=== PATIENT | male | born 1995 | race Caucasian/White ===

== ENCOUNTER 2016-05-17 19:44 | Emergency (ER) | payer OTHER ==
[2016-05-17 20:07] LABS: BASOPHIL# 0.1 X 10^3uL (0.0-0.1); EOSINOPHILS# 0.2 X 10^3uL (0.0-0.4); MEAN CELL VOLUME 90.1 fL (80.0-100.0); MONOCYTES 5.4 % (2.0-10.0); MONOCYTES# 0.5 X 10^3uL (0.2-1.0); NEUTROPHILS# 5.5 X 10^3uL (2.6-6.7)
[2016-05-17 20:09] LABS: BASOPHILS 0.8 % (0.0-2.0); EOSINOPHILS 2.3 % (0.0-6.0); HEMATOCRIT 49.1 % (42.0-54.0); HEMOGLOBIN 16.7 g/dL (14.0-18.0); LYMPHOCYTES 26.5 % (20.0-40.0); LYMPHOCYTES# 2.3 X 10^3uL (0.8-3.8); MEAN CORPUS. HGB CONCENTRATION 34.1 g/dL (32.0-36.0); MEAN CORPUSCULAR HEMOGLOBIN 30.7 pg (29.0-35.0); RED BLOOD COUNT 5.45 X 10^6uL (4.20-6.10); RED CELL DISTRIBUTION WIDTH 12.2 % (11.5-14.5); WHITE BLOOD COUNT 8.6 X 10^3uL (3.9-10.7)
--- NOTE | 2016-05-17 20:33 | ER NURSING DOCUMENTATION ---
Nurse's Notes [facility] Name:Abdirashid Gary Age:20 yrs Sex:Male :1995 Arrival Date:05/17/2016 Time:19:44 Bed1 Private MD:Physician, No Diagnosis:Hematemesis Presentation: 05/17 19:46 Presenting complaint: Patient states: Pt vomited blood once on Tuesday and once today. rh Pt states he vomit was red. Transition of care: Other Kimberlyn Crest. 19:46 Method Of Arrival: Private Vehicle rh 19:46 Acuity: NANCIE 4 rh Triage Assessment: 19:48 General: Appears in no apparent distress, Behavior is cooperative. Pain: Denies pain. rh EENT: Oral mucosa is dry. Neuro: Level of Consciousness is awake, alert, obeys commands. Cardiovascular: Capillary refill < 3 seconds. Respiratory: Airway is patent. GI: Reports vomiting, Blood in vomit once today. : No deficits noted. Derm: Skin is intact, is healthy with good turgor, Skin is pink, warm & dry. Historical: - Allergies: Tramadol HCl; - Home Meds: 1. Verapamil Oral 2. gabapentin oral 3. Hydrocodone-Acetaminophen Oral 4. Cyclobenzaprine Oral - PMHx: CHRONIC PAIN; HYPERTENSION; - PSHx: BACK SURGERY; - Tetanus: < 10 years. - Ebola Screening: : Patient negative for fever greater than or equal to 101.5 degrees Fahrenheit, and additional compatible Ebola Virus Disease symptoms. - Immunization history: Flu Vaccine < 1 year. - Social history: Smoking status: Patient states was never smoker of tobacco. Screenin:49 Infectious Disease Risk None. Abuse screen: Denies threats or abuse. Denies injuries rh from another. Nutritional screening: No deficits noted. Assessment: 19:49 See Triage Assessment done by same RN. rh Vital Signs: 19:49 BP 120 / 75; Pulse 102; Resp 18; Temp 97.5(O); Pulse Ox 93% on R/A; Weight 58.97 kg; rh Height 5 ft. 11 in. (180.34 cm); Pain 1/10; 20:31 Pulse 90; Resp 15; Pulse Ox 95% on R/A; rh 19:49 Body Mass Index 18.13 (58.97 kg, 180.34 cm) rh ED Course: 19:45 Patient arrived in ED. em2 19:45 Physician, No is Private Physician. em2 19:46 Cherie Ward is Primary Nurse. 19:46 Triage completed. 19:49 Valuables Remains with patient Patient has correct armband on for positive rh identification. Bed in low position. Call light in reach. Pillow given. Family accompanied patient. 19:51 Notified ED Physician of patient's arrival and chief complaint. Dr. Qureshi notified. 19:57 Labs drawn. (by ED staff). Sent per order to lab. 20:09 Toño Qureshi MD is Attending Physician. zack 20:22 Assist Provider Rectal Exam. 20:26 Jacoby Sharma MD is Referral Physician. zack Administered Medications: No medications were administered Outcome: 20:26 Discharge ordered by . 20:31 Discharged to home ambulatory, with significant other. 20:31 Condition: stable 20:31 Discharge Assessment: Patient awake, alert and oriented x 3. No cognitive and/or functional deficits noted. Patient verbalized understanding of disposition instructions. 20:31 Discharge instructions given to patient, Instructed on discharge instructions, follow up and referral plans. Demonstrated understanding of instructions, medications, Prescriptions given X 1. 20:32 Patient left the ED. 05/18 10:07 Discharge F/U Call: Unable to reach: no answer lp Signatures: Cristina Chow RN RN lp Toño Qureshi MD MD jm Meimaged-reg, Jayla-reg em2 Cherie Ward
--- NOTE | 2016-05-17 20:33 | ER PHYSICIAN DOCUMENTATION ---
Physician Documentation [facility] Name:Abdirashid Gary Age:20 yrs Sex:Male :1995 Arrival Date:05/17/2016 Time:19:44 Bed1 Private MD:Physician, No ED Toño [place] Disposition: 05/17/16 20:26 Discharged to Home/Self Care. Impression: Hematemesis. - Condition is Good. - Discharge Instructions: HEMATEMESIS Stable - GI BLEED, Upper (Stable). - Prescriptions for omeprazole 20 mg Oral capsule,delayed release(DR/EC) - take 1 capsule by ORAL route once daily; 30 capsule. - Medical Reconciliation form form. - Follow up: Jacoby Sharma MD; When: - Try to schedule EGD. ; Reason: Continuance of care. - Problem is new. - Symptoms have improved. HPI: 05/17 20:00 This 20 yrs old Male presents to ER via Private Vehicle with complaints of jm Vomiting - BLOOD IN VOMIT. 20:00 The patient presents to the emergency department with vomiting, 1 times today, and one jm time, 3 days ago. , described as blood streaked. Onset: The symptom(s)/episode began/occurred 3 day(s) ago. Possible causes: unknown. Associated signs and symptoms: Pertinent negatives: abdominal pain, nausea, vomiting. Severity of symptoms: in the emergency department the symptoms have improved. Pt here to get checked out b/c for the 2nd time in 3 days he saw a bit of vomit in the toilet. Pt denies nausea now, unusual foods, or ETOH. Pt states his stools have been a bit darker as well. . Historical: - Allergies: Tramadol HCl; - Home Meds: 1. Verapamil Oral 2. gabapentin oral 3. Hydrocodone-Acetaminophen Oral 4. Cyclobenzaprine Oral - PMHx: CHRONIC PAIN; HYPERTENSION; - PSHx: BACK SURGERY; - Tetanus: < 10 years. - Ebola Screening: : Patient negative for fever greater than or equal to 101.5 degrees Fahrenheit, and additional compatible Ebola Virus Disease symptoms. - Immunization history: Flu Vaccine < 1 year. - Social history: Smoking status: Patient states was never smoker of tobacco. ROS: 05/18 10:01 Constitutional: Negative for fatigue, fever, malaise. jm Abdomen/GI: Positive for hematemesis, black/tarry stool, Negative for rectal pain, rectal bleeding. 10: : Negative for hematuria. 10: Neuro: Negative for dizziness, near syncope. Exam: 10: Constitutional: The patient appears alert, awake, comfortable. 10: Cardiovascular: Rate: normal, Rhythm: regular. 10: Respiratory: Respirations: normal, Breath sounds: are normal. 10: Abdomen/GI: Bowel sounds: normal, Palpation: abdomen is soft and non-tender, Rectal exam: Stool: brown, guaiac negative. 10: Skin: Appearance: Color: pink. 10: Neuro: Mentation: is normal, Gait: is steady. Vital Signs: 05/17 19:49 BP 120 / 75; Pulse 102; Resp 18; Temp 97.5(O); Pulse Ox 93% on R/A; Weight 58.97 kg; rh Height 5 ft. 11 in. (180.34 cm); Pain /; 20:31 Pulse 90; Resp 15; Pulse Ox 95% on R/A; rh 19:49 Body Mass Index 18.13 (58.97 kg, 180.34 cm) MDM: 20:00 Differential diagnosis: viral gastroenteritis, MW tear, gastritis. Data reviewed: vital jm signs, nurses notes, lab test result(s), and as a result, I will discharge patient. Counseling: I had a detailed discussion with the patient and/or guardian regarding: the historical points, exam findings, and any diagnostic results supporting the discharge/admit diagnosis, lab results, the need for outpatient follow up, with the patient's primary care provider, a systems support specialist. ED course: Pt w normal CBC and no rectal blood. VSS w/o pain or nausea. I feel pt can f/u as outpt. Will given RX for omeprazole in the mean time and f/u w GI. . 20:09 Patient medically screened. 05/17 20:14 Order name: CBC AUTO DIF, MDIF/RMOR IF IND; Complete Time: 20:14 EDMS Dispensed Medications: No medications were administered Signatures: Toño Qureshi MD MD jm Hofsess, Rachel
== END 2016-05-17 20:32 | disposition home or self-care (01) ==
LOC: ER 19:44
DX: K92.0 Hematemesis (principal); G89.29 Other chronic pain; I10 Essential (primary) hypertension; Z79.899 Other long term (current) drug therapy
CPT/HCPCS: 85025; 99283

== ENCOUNTER 2016-05-19 20:19 | Emergency (ER) | payer OTHER ==
[2016-05-19] MEDS ORDERED: ONDANSETRON ODT 4 MG TAB.RAPDIS ONE (20:46)
[2016-05-19] MEDS ORDERED: IBUPROFEN 600 MG TABLET PO ONE (21:03)
[2016-05-19] MEDS ORDERED: ACETAMINOPHEN 325 MG TABLET PO ONE (21:03)
--- NOTE | 2016-05-19 21:29 | CT REPORT ---
HISTORY: Rock fell and hit him in the head, nausea and lightheadedness COMPARISON: None. TECHNIQUE: Axial non-contrast images obtained from skull vertex through foramen magnum. Dose reduction technique was utilized. FINDINGS: There is no atrophy. There is no hemorrhage. There is no hydrocephalus. No mass lesion is identifi ed. Jackson white differentiation adequate, there is no infarction. No midline shift is identified. Th ere is no subdural or epidural collection, or midline shift. No mass effect. The skull is intact. Mild ethmoid sinus disease is noted. IMPRESSION: No acute findings noted within the brain. Mild ethmoid sinus disease. Final Electronic Signature: This report was electronically signed by Gabriel Lara MD on 05/19/2016 9 :26 PM. rai /
--- NOTE | 2016-05-19 22:10 | ER PHYSICIAN DOCUMENTATION ---
Physician Documentation [facility] Name:Abdirashid Gary Age:20 yrs Sex:Male :1995 Arrival Date:05/19/2016 Time:20:19 Bed1 Private MD:Physician, No ED Igor Johnson Disposition: 05/19/16 21:48 Discharged to Home/Self Care. Impression: Concussion without LOC. - Condition is Good. - Discharge Instructions: CONCUSSION, No Wake Up. - Medical Reconciliation form form. - Follow up: Private Physician; When: 7 - 10 days; Reason: Recheck today's complaints, Continuance of care. - Problem is new. - Symptoms have improved. - Notes: Drink plenty of fluids each. Avoid all activities that could result in a head injury for 2 weeks. Take Ibuprofen 600mg by mouth every 6 hours with food for headache for 2 days. Post-Concussive Syndrome symptoms were discussed with the patient. HPI: 05/19 20:51 This 20 yrs old Male presents to ER via Private Vehicle with complaints of cd Head Injury-Adult. 20:51 The patient or guardian reports abrasion, injury, pain, tenderness. The complaints cd affect the top of head and forehead. Context of injury: The problem was sustained outdoors, resulted from a direct blow, a couple of large rocks that came loose and [place] the mountain and struck the patient's head.. Onset: The symptom(s)/episode began/occurred acutely, just prior to arrival. Associated signs and symptoms: Loss of consciousness: This patient did not experience any loss of consciousness. Pertinent positives: dazed, headache, nausea, generalized weakness, face and forehead, Patient has right Trapezius tenderness, Pertinent negatives: seizure. Severity of symptoms: At their worst the symptoms were moderate, in the emergency department the symptoms are unchanged. Intracranial bleed risk factors: This patient has no risk factors for intracranial bleed. Historical: - Allergies: Tramadol HCl; - Home Meds: 1. Verapamil Oral 2. gabapentin oral 3. Hydrocodone-Acetaminophen Oral 4. Cyclobenzaprine Oral - PMHx: CHRONIC PAIN; HYPERTENSION; Hematemesis (May 17, 2016); - PSHx: BACK SURGERY; - Tetanus: < 10 years. - Ebola Screening: : Patient negative for fever greater than or equal to 101.5 degrees Fahrenheit, and additional compatible Ebola Virus Disease symptoms. - Immunization history: Flu Vaccine None. - Social history: Smoking status: Patient states was never smoker of tobacco. ROS: 20:55 Constitutional: Positive for poor PO intake. cd 20:55 Eyes: Negative for blurry vision, visual disturbance, vision loss. 20:55 ENT: Negative for acute changes. 20:55 Neck: Positive for pain at rest, over right Trapezious, Negative for bony tenderness. 20:55 Neuro: Positive for dizziness, headache, Negative for altered mental status, loss of consciousness, numbness, seizure activity, speech changes, tingling. 20:55 All other systems are negative. Exam: 20:58 Constitutional: The patient appears alert, awake, non-diaphoretic, non-toxic, well cd developed, well nourished, anxious, in obvious distress, mildly distressed. 20:58 Head/face: Noted is abrasion(s), that are mild, contusion, that is deep, of the top of head and forehead, Basilar skull fracture findings: the patient does not have obvious signs of a basilar skull fracture, no Rao signs, no hemotympanum, no nasal drainage, no racoon eyes. 20:58 Eyes: Pupils: equal, round, and reactive to light and accomodation, Extraocular movements: intact throughout. 20:58 ENT: TM's: hemotympanum, is not appreciated, bilaterally. 20:58 Neck: External neck: tenderness, that is moderate, of the right trapezius, C-spine: vertebral tenderness, is not appreciated. 20:58 Neuro: Orientation: is normal, to person, place & time. Mentation: lucid, able to follow commands, Memory: is normal, Cranial nerves: CN II- XII are normal as tested, Motor: is normal, Sensation: is normal, Gait: is steady. Vital Signs: 20:30 BP 134 / 84; Pulse 78; Resp 16; Temp 98.7(O); Pulse Ox 96% on R/A; Weight 58.97 kg; rh Height 5 ft. 11 in. (180.34 cm); Pain 5/10; 21:27 BP 130 / 78; Pulse 70; Resp 15; Pulse Ox 98% on R/A; Pain 2/10; rh 20:30 Body Mass Index 18.13 (58.97 kg, 180.34 cm) rh Maple Coma Score: 20:25 Eye Response: spontaneous(4). Verbal Response: oriented(5). Motor Response: obeys rh commands(6). Total: 15. 20:51 Eye Response: spontaneous(4). Verbal Response: oriented(5). Motor Response: obeys cd commands(6). Total: 15. 20:58 Eye Response: spontaneous(4). Verbal Response: oriented(5). Motor Response: obeys cd commands(6). Total: 15. 21:00 Eye Response: spontaneous(4). Verbal Response: oriented(5). Motor Response: obeys cd commands(6). Total: 15. Trauma Score (Adult): 20:31 Eye Response: spontaneous(1); Verbal Response: oriented(1); Motor Response: obeys rh commands(2); Systolic BP: > 89 mm Hg(4); Respiratory Rate: 10 to 29 per min(4); Galindo Score: 15; Trauma Score: 12 21:27 Eye Response: spontaneous(1); Verbal Response: oriented(1); Motor Response: obeys rh commands(2); Systolic BP: > 89 mm Hg(4); Respiratory Rate: 10 to 29 per min(4); Maple Score: 15; Trauma Score: 12 MDM: 20:30 Data interpreted: Pulse oximetry: on room air is 96 %. Interpretation: normal. cd 20:45 Differential diagnosis: Contusion of Hematoma on Intracranial bleed- Concussion without cd LOC. 20:50 Patient medically screened. cd 21:00 Neurological re-evaluation: normal neurological exam including cranial nerves, cd orientation, mentation, motor and sensory exam, cerebellar testing, GCS normal, and normal gait. Data reviewed: vital signs, nurses notes, old medical records, and as a result, I will continue to observe the patient, order radiologic studie(s), CT scan. 21:30 Medication response: The patient's symptoms have improved. cd 21:45 Neurological re-evaluation: normal neurological exam including cranial nerves, cd orientation, mentation, motor and sensory exam, cerebellar testing, GCS normal, and normal gait. 21:46 Counseling: I had a detailed discussion with the patient and/or guardian regarding: the cd historical points, exam findings, and any diagnostic results supporting the discharge/admit diagnosis, radiology results, the need for outpatient follow up, for a recheck, with the patient's primary care provider. 21:47 Response to treatment: the patient's symptoms have markedly improved after treatment, rupinder and as a result, I will discharge patient. 05/19 21:31 Order name: CAT SCAN; HEAD W/O CON [id number]; Complete Time: 11:40 EDMS 05/20 11:39 Interpretation: Normal: See report. cd 05/19 20:48 Order name: Wound Care; Complete Time: 20:48 rh Dispensed Medications: 20:38 Drug: Zofran 4 mg; Route: PO; rh 20:48 Follow up: Response: Nausea is decreased rh 20:53 Drug: Acetaminophen 975 mg; Route: PO; rh 21:18 Follow up: Response: No adverse reaction; Pain is decreased rh 20:53 Drug: Ibuprofen 600 mg; Route: PO; rh 21:18 Follow up: Response: No adverse reaction rh Signatures: Igor Adam MD MD cd Hofsess, Rachel
--- NOTE | 2016-05-19 22:10 | ER NURSING DOCUMENTATION ---
Nurse's Notes [facility] Name:bAdirashid Gary Age:20 yrs Sex:Male :1995 Arrival Date:05/19/2016 Time:20:19 Bed1 Private MD:Physician, No Diagnosis:Concussion without LOC Presentation: 05/19 20:25 Presenting complaint: Patient states: PT was hiking near [facility] less than one hour rh ago. He had a rock fall and hit him on the forehead. Pt did not lose consciousness or pass out, he continued to hike down the trail and drove to the ER. He feels nauseated and lightheaded currently. Transition of care: Other RMNP. Mechanism of Injury: resulted from a direct blow, Small rock falling . 20:25 Acuity: NANCIE 3 rh 20:25 Method Of Arrival: Private Vehicle rh Triage Assessment: 20:28 General: Appears in no apparent distress, Behavior is anxious. Pain: Complains of pain rh in forehead. EENT: Oral mucosa is moist. Neuro: Level of Consciousness is awake, alert, obeys commands, Oriented to person, place, time, event, Reports diplopia, headache. Cardiovascular: Capillary refill < 3 seconds. Respiratory: Airway is patent Respiratory effort is even, unlabored. GI: Reports nausea. : No deficits noted. Derm: Skin is intact, is healthy with good turgor, Skin is pink, warm & dry. Musculoskeletal: Circulation, motion, and sensation intact Range of motion intact in all extremities. Injury Description: Abrasion sustained to forehead was sustained 30-60 minutes ago. Historical: - Allergies: Tramadol HCl; - Home Meds: 1. Verapamil Oral 2. gabapentin oral 3. Hydrocodone-Acetaminophen Oral 4. Cyclobenzaprine Oral - PMHx: CHRONIC PAIN; HYPERTENSION; Hematemesis (May 17, 2016); - PSHx: BACK SURGERY; - Tetanus: < 10 years. - Ebola Screening: : Patient negative for fever greater than or equal to 101.5 degrees Fahrenheit, and additional compatible Ebola Virus Disease symptoms. - Immunization history: Flu Vaccine None. - Social history: Smoking status: Patient states was never smoker of tobacco. Screenin:31 Infectious Disease Risk None. Abuse screen: Denies threats or abuse. Denies injuries rh from another. Nutritional screening: No deficits noted. Assessment: 21:27 Reassessment: Pt's friend is on the way to pick him up. . rh Vital Signs: 20:30 BP 134 / 84; Pulse 78; Resp 16; Temp 98.7(O); Pulse Ox 96% on R/A; Weight 58.97 kg; rh Height 5 ft. 11 in. (180.34 cm); Pain 5/10; 21:27 BP 130 / 78; Pulse 70; Resp 15; Pulse Ox 98% on R/A; Pain 2/10; rh 20:30 Body Mass Index 18.13 (58.97 kg, 180.34 cm) rh Galindo Coma Score: 20:25 Eye Response: spontaneous(4). Verbal Response: oriented(5). Motor Response: obeys rh commands(6). Total: 15. 20:51 Eye Response: spontaneous(4). Verbal Response: oriented(5). Motor Response: obeys cd commands(6). Total: 15. 20:58 Eye Response: spontaneous(4). Verbal Response: oriented(5). Motor Response: obeys cd commands(6). Total: 15. 21:00 Eye Response: spontaneous(4). Verbal Response: oriented(5). Motor Response: obeys cd commands(6). Total: 15. Trauma Score (Adult): 20:31 Eye Response: spontaneous(1); Verbal Response: oriented(1); Motor Response: obeys rh commands(2); Systolic BP: > 89 mm Hg(4); Respiratory Rate: 10 to 29 per min(4); Galindo Score: 15; Trauma Score: 12 21:27 Eye Response: spontaneous(1); Verbal Response: oriented(1); Motor Response: obeys rh commands(2); Systolic BP: > 89 mm Hg(4); Respiratory Rate: 10 to 29 per min(4); Galindo Score: 15; Trauma Score: 12 ED Course: 20:23 Patient arrived in ED. ma1 20:23 Physician, Liz is Private Physician. ma1 20:25 Cherie Ward is Primary Nurse. rh 20:27 Triage completed. rh 20:30 Wound care to abrasion, located on forehead was cleaned with soap and water, Patient rh tolerated well. 20:31 Notified ED Physician of patient's arrival and chief complaint. Dr. Adam notified. rh 20:31 Valuables Remains with patient Patient has correct armband on for positive rh identification. Bed in low position. Call light in reach. Side rails up X 1. 20:50 Igor Adam MD is Attending Physician. cd 21:[address] ds2 21:10 Patient moved back from CT. ds2 21:22 Assisted to bathroom. rh Administered Medications: 20:38 Drug: Zofran 4 mg; Route: PO; rh 20:48 Follow up: Response: Nausea is decreased rh 20:53 Drug: Acetaminophen 975 mg; Route: PO; rh 21:18 Follow up: Response: No adverse reaction; Pain is decreased rh 20:53 Drug: Ibuprofen 600 mg; Route: PO; rh 21:18 Follow up: Response: No adverse reaction rh Outcome: 21:48 Discharge ordered by MD. cd 22:09 Discharged to home ambulatory, with friend. rh 22:09 Condition: improved 22:09 Discharge Assessment: Patient awake, alert and oriented x 3. No cognitive and/or functional deficits noted. Patient verbalized understanding of disposition instructions. 22:09 Discharge instructions given to patient, friend, Instructed on discharge instructions, follow up and referral plans. Demonstrated understanding of instructions. 22:09 Patient left the ED. 05/20 11:44 Discharge F/U Call: Spoke with: patient. How are you managing your pain? Patient is nf taking medication: ibuprofen Have you filled your prescriptions? n/a Did your discharge instructions answer all of your questions? yes Further F/U necessary? None needed Signatures: Leatha Andrade RN RN nf Daley, Chris, MD MD Saima Mahoney Cherie Mota Chrissy Brown [facility]
== END 2016-05-19 22:09 | disposition home or self-care (01) ==
LOC: ER 20:19
DX: S06.0X0A Concussion without loss of consciousness, initial encounter (principal); S00.81XA Abrasion of other part of head, initial encounter; R42 Dizziness and giddiness; M54.2 Cervicalgia; W20.8XXA Other cause of strike by thrown, projected or falling object, initial encounter; Y92.838 Other recreation area as the place of occurrence of the external cause; Y93.01 Activity, walking, marching and hiking; R11.2 Nausea with vomiting, unspecified; I10 Essential (primary) hypertension; Z79.899 Other long term (current) drug therapy
CPT/HCPCS: 70450; 99284